=== PATIENT | male | born 1945 | race Caucasian/White ===

== ENCOUNTER 2019-02-09 17:34 | Inpatient (IN) | payer MEDICARE ==
--- OUTSIDE RECORDS SUMMARY | 2019-02-09 18:27 | XMS REPORT | Continuity of Care Document ---
:1945 External Reference #:[id number] Author Name Gisela Bhagat Care Team Providers Name Role Phone Nasrin Patel MD Primary Care Physician Unavailable Payers Date Identification Numbers Payment Provider Subscriber Effective: 2018 Policy Number: [id number] Medicare Blue Ppo Paolo Fragoso PayID: [id number] [address] [address] [place] [address] Effective: 2012 Policy Number: [id number] Facets Paolo Fragoso Expires: 2018 PayID: [id number] [address] [address] [place] [address] Effective: 2010 Policy Number: [id number] [facility] Ppo Paolo Fragoso Expires: 2012 PayID: [id number] [address] [address] [place] [address] Family History Date Family Member(s) Observation Comments General Heart Disease General Cancer Social History Type Date Description Comments Sex Unknown Lives With Occupation Not Currently Working ETOH Use Denies alcohol use Tobacco Use Start: Unknown Patient has never smoked Smoking Status Reviewed: 02/08/19 Patient has never smoked Exercise Type/Frequency Exercises sporadically Allergies, Adverse Reactions, Alerts Description No Known Drug Allergies Medications Active Medications SIG Qnty Indications Ordering Provider Date Doxazosin Mesylate Unknown Diovan Unknown Simvastatin Unknown Acetaminophen 2 every 4 hours Unknown 325mg Tablets as needed for pain History Medications Percocet 1-2 tabs po q4-6 20tabs Jorge A Schafer M.D. 06/15/2011 - 5-325mg prn pain 12/08/2014 Tablets Medications Administered in Office Medication SIG Qnty Indications Ordering Provider Date Depomedrol 40MG Mack Bhatti M.D. 12/09/2014 Injection Depomedrol 40MG Mack Bhatti M.D. 01/28/2014 Injection Depomedrol 80MG Mack Bhatti M.D. 02/03/2012 Injection Depomedrol 20MG Mack Bhatti M.D. 02/03/2012 Injection Vital Signs Date Vital Result Comment 02/08/2019 1:30pm Height 68 inches 5'8" Weight 170.00 lb BP Systolic 130 mmHg BP Diastolic 72 mmHg Respiratory Rate 20 /min Body Temperature 98.8 F Pain Level 8 BMI (Body Mass Index) 25.8 kg/m2 12/09/2014 11:43am Height 68 inches 5'8" Weight 170.00 lb Pain Level 2 BMI (Body Mass Index) 25.8 kg/m2 01/28/2014 9:32am Height 68 inches 5'8" Weight 170.00 lb Heart Rate 64 /min BP Systolic 124 mmHg BP Diastolic 80 mmHg BMI (Body Mass Index) 25.8 kg/m2 Procedures Date Code Description Status 02/08/201946161 Inject/Drain Joint/Bursa Major W/O US Completed 12/09/2014 49143 Inject Tendon Sheath Or Ligament Aponeurosis Eg Plantar Completed Fascia 01/28/2014 19684 Rad Exam; Wrist, Comp, Min 3 Views Completed 01/28/2014 75190 Inject Tendon Sheath Or Ligament Aponeurosis Eg Plantar Completed Fascia 02/03/2012 31155 Rad Shoulder Comp, Min. 2 Views Completed 02/03/2012 52193 Inject/Drain Joint/Bursa Major W/O US Completed 02/03/2012 93171 Injection Single Tendon Origin/Insertion Completed 02/03/2012 21856 Inject Tendon Sheath Or Ligament Aponeurosis Eg Plantar Completed Fascia Encounters Type Date Location Provider Dx Diagnosis Office Visit 12/09/2014 [facility] Mack Bhatti M.D. 727.03 Trigger Finger 11:45a Of [place] Acquired 727.09 Synovitis & Tenosynovitis Other Office Visit 01/28/2014 9:15a Orth[facility] Mack Bhatti 727.03 Trigger Finger [facility] [place] Acquired 727.09 Synovitis & Tenosynovitis Other 727.05 Tenosynovitis Hand & Wrist Other Office Visit 02/03/2012 9:45a Orthopedic Mack Bhatti, 726.10 B[facility]ae [facility] M.Yang. 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 Cartilage Or Meniscus Jennifer Plan of Treatment Future Appointment(s):03/15/2019 1:45 pm - Buddy Sweeney MD at [facility]02/08/2019 - Buddy Sweeney, MDM25.562 Pain in left kneeS83.282A Other tear of lateral meniscus, current injury, left knee, iNew Therapy:Physical TherapyFollow up:Follow up: 4-6 weeks
--- NOTE | 2019-02-09 18:34 | ED ---
Shortness of Breath - HPI Summary HPI Summary: A 74 y/o male presents to [facility] with a chief complaint of SOB and SOB with exertion on 02/09/19. He reports that he had a cortisone shot in his left knee yesterday at 14:[address] Sweeney. Vital signs were typical then. But now he reports that his BP is elevated. He also notes that his voice is hoarse. The patient also reports that his pulse was elevated from around 60bpm up to 85bpm today. He has a Hx of asthma, and uses an inhaler as needed, using the inhaler today. He denies any CP. He has had a similar type of SOB with asthma previously. He was not wheezing. He denies any urinary symptoms. He denies any Hx of cardiac disease. He has not had a stress test. Pt's knee is not hurting today, and it has no redness or swelling. FHx of cancer, in father, leukemia in mother. He denies a Hx of blood clots. He had toe surgery 5-6 years ago and shoulder surgery in his 20s. His PCP, Dr. Patel, instructed him to present to the ED with these sxs. Vital signs at triage: HR 90 bpm, BP 157/74, O2 Sat 100% - History of Current Complaint Chief Complaint: EDShortnessOfBreath Time Seen by Provider: 02/09/19 17:46 Hx Obtained From: Patient, Family/Appliance Painter And Refinisher - Pt's son Gautam is a first year president college or university Onset/Duration: Sudden Onset, Lasting Hours, Still Present Timing: Constant Current Severity: None Dyspnea At: Exertion Aggravating Factors: Nothing Alleviating Factors: Nothing Associated Signs & Symptoms: Negative - wheezing, fever - Allergy/Home Medications Allergies/Adverse Reactions: Allergies Allergy/AdvReac Type Severity Reaction Status Date / Time No Known Allergies Allergy Verified 02/09/19 21:58 Home Medications: Home Medications Valsartan 80 mg PO DAILY 02/09/19 [History Confirmed 02/09/19] PMH/Surg Hx/FS Hx/Imm Hx Previously Healthy: No Endocrine/Hematology History: Denies: Hx Diabetes, Hx Thyroid Disease Cardiovascular History: Reports: Hx Hypercholesterolemia, Hx Hypertension - on meds Respiratory History: Reports: Hx Asthma Denies: Hx Chronic Obstructive Pulmonary Disease (COPD) GI History: Denies: Hx Ulcer - Surgical History Surgical History: Yes Surgery Procedure, Year, and Place: He had toe surgery 5-6 years ago and shoulder surgery in his 20s Infectious Disease History: No Infectious Disease History: Denies: Hx Hepatitis, Hx Human Immunodeficiency Virus (HIV), Traveled Outside the [place] in Last 30 Days - Family History Known Family History: Positive: Hypertension - father, Other - leukemia in mother - Social History Alcohol Use: Rare Substance Use Type: Reports: None Smoking Status (MU): Never Smoked Tobacco Review of Systems Negative: Fever Negative: Chest Pain Positive: Shortness Of Breath Gastrointestinal: Negative Genitourinary: Negative Musculoskeletal: Negative Skin: Negative Neurological: Negative Psychological: Normal All Other Systems Reviewed And Are Negative: Yes Physical Exam - Summary Physical Exam Summary: Appearance: well-appearing, no pain distress, well-nourished, younger than stated age. Skin: Warm, color reflects adequate perfusion, dry Head: Normal Head/Face inspection, atraumatic Eyes: Conjunctiva clear ENT: Normal inspection Neck: Supple, no nodes, no JVD Respiratory: Lungs clear, normal breath sounds, no respiratory distress Cardio: RRR, No murmur, pulses normal, brisk capillary refill Abdomen: Soft, nontender Bowel sounds: Present Musculoskeletal: Strength Intact/ROM intact, no calf tenderness, no edema, left knee with bandaid in place, has full ROM, no swelling or effusion, no redness Psychological: Normal Neuro: Alert, muscle tone normal, no focal deficit Triage Information Reviewed: Yes Vital Signs On Initial Exam: Initial Vitals Temp Pulse Resp BP Pulse Ox 99.4 F 90 18 157/74 100 02/09/19 17:39 02/09/19 17:39 02/09/19 17:39 02/09/19 17:39 02/09/19 17:39 Vital Signs Reviewed: Yes Diagnostics - Vital Signs Vital Signs Temp Pulse Resp BP Pulse Ox 02/09/19 17:39 99.4 F 90 18 157/74 100 - Laboratory Result Diagrams: 02/09/19 19:19 02/09/19 19:19 Lab Statement: Any lab studies that have been ordered have been reviewed, and results considered in the medical decision making process. - Radiology CXR Radiology Interpretation Completed By: ED Physician Summary of Radiographic Findings: NAD. Pending official imaging report. - EKG 17:44 Cardiac Rate: NL - 84 bpm EKG Rhythm: Sinus Rhythm Summary of EKG Findings: An EKG at 17:44 reveals SR, nml AV/IV CT, nml QTc, and nml axis. minimal ST depression I and aVL and v3-v6. No acute changes. No previous EKG to compare with. ED MD has reviewed and interpreted this EKG. Re-Evaluation - Re-Evaluation First Eval Re-Evaluation Time: 19:22 Change: Improved Comment: Pt reports that his heart rate has decreased. Second Eval Re-Evaluation Time: 20:37 Change: Unchanged Comment: Patient's son in room, who is a physician. HR 63 bpm, O2 Sat 100%, BP 139/54 Course/Dx - Course Course Of Treatment: A 74 y/o male presents to [facility] with a chief complaint of SOB with exertion, hoarse voice, BP that is elevated for him, and tachycardia one day after receiving a cortisone injection in his left knee. He denies any urinary symptoms or CP. An EKG at 17:44 reveals SR 90, nml AV/IV CT, nml QTc, and nml axis. minimal ST depression in I and aVL and v3-v6. No acute changes. No previous EKG to compare with. ED MD has reviewed and interpreted this EKG. His CXR showed NAD. In the ED course the patient was given 324 mg Aspirin PO at 22:02. Blood work and chemistries obtained. WBC of 19.4 at 19:19, Lactic acid of 2.5 at 19:16, Troponin of 0.04 at 19:19. Pt has a HEART score of 6. Pt medications reviewed this visit. Nurses notes reviewed. Allergies noted. Case discussed with Dr. Simpson, hospitalist, who accepted the patient for admission. The patient is agreeable with this plan. - Diagnoses Differential Diagnosis/HQI/PQRI: Positive: Asthma, Bronchitis, CHF, CT, Pulmonary Embolism, Unstable Angina Provider Diagnoses: Dyspnea on exertion, Elevated lactic acid level, Elevated troponin, Leukocytosis - Physician Notifications Discussed Care of Patient With: Leticia Simpson Time Discussed With Above Provider: 20:00 Instructed by Provider To: Admit As Inpatient Discharge - Sign-Out/Discharge Documenting (check all that apply): Patient Departure - admit All imaging exams completed and their final reports reviewed: No Patient Received Moderate/Deep Sedation with Procedure: No - Discharge Plan Condition: Fair Disposition: ADMITTED TO [facility] - Billing Disposition and Condition Condition: FAIR Disposition: Admitted to [facility] - Attestation Statements Document Initiated by Vesna: Yes Documenting Scribe: Hector Hunt Provider For Whom Vesna is Documenting (Include Credential): Dr. Nancy Jay MD Scribe Attestation: Hector Real, scribed for Dr. Nancy Jay MD on 02/10/19 at 0252. Scribe Documentation Reviewed: Yes Provider Attestation: The documentation as recorded by the Hector wiley accurately reflects the service I personally performed and the decisions made by me, Dr. Nancy Jay MD Status of Scribe Document: Viewed
[2019-02-09 19:28] LABS: ABS Lymphocytes 0.8 10^3/ul (1.0-4.8); ABS Monocytes 0.5 10^3/ul (0-0.8); ABS Neutrophils 18.1 10^3/ul (1.5-7.7); Hematocrit 38 % (42-52); Hemoglobin 12.7 g/dL (14.0-18.0); Lymphocyte % 3.9 %; Mean Corpuscular HGB Conc 33 g/dL (31-36); Mean Corpuscular Hemoglobin 32 pg (27-31); Mean Corpuscular Volume 95 fL (80-94); Mean Platelet Volume 8.4 fL (7.4-10.4); Platelet Count 194 10^3/uL (150-450); Red Cell Distribution Width 14 % (10-15); White Blood Count 19.4 10^3/uL (3.5-10.8)
[2019-02-09 19:41] LABS: Activated Partial Thrombo Time 26.9 seconds (26.0-38.0)
[2019-02-09 19:46] LABS: ALT 13 U/L (7-52); AST 22 U/L (13-39); Albumin 4.6 g/dL (3.2-5.2); Albumin/Globulin Ratio 1.8 (1-3); Alkaline Phosphatase 49 U/L (34-104); Anion Gap 11 mmol/L (2-11); BUN/Creatinine Ratio 26.4 (8-20); Blood Urea Nitrogen 34 mg/dL (6-24); C Reactive Protein 5.47 mg/L (<8.01); CO2 Carbon Dioxide 24 mmol/L (22-32); Calcium 10.1 mg/dL (8.6-10.3); Chloride 107 mmol/L (101-111); Creatine Kinase 397 U/L (10-223); EGFR African American 66.2 (>60); EGFR Non-African American 54.7 (>60); Globulin 2.6 g/dL (2-4); Glucose 131 mg/dL (70-100); Potassium 4.6 mmol/L (3.5-5.0); Sodium 142 mmol/L (135-145); Total Protein 7.2 g/dL (6.4-8.9)
[2019-02-09 19:52] LABS: Troponin I 0.04 ng/mL (<0.04)
[2019-02-09] MEDS ORDERED: Ondansetron INJ* 2 MG/ML VIAL IV PRN (21:46)
[2019-02-09] MEDS ORDERED: NS 0.9% 1000 ML** 1,000 ML IV ONE (21:46)
[2019-02-09] MEDS ORDERED: Aspirin TAB* 325 MG PO ONE (21:56)
[2019-02-09] MEDS ORDERED: NS 0.9% 1000 ML** 1,000 ML IV SCH (22:00)
[2019-02-09] MEDS ORDERED: Aspirin 81 mg CHEW TAB* 81 MG TAB.CHEW PO ONE (22:02)
[2019-02-09 22:26] LABS: Troponin I 0.04 ng/mL (<0.04)
[2019-02-09] MEDS: Zolpidem TAB* 10 MG PO PRN (23:24)
[2019-02-09] MEDS: Heparin VIAL(*) 5000 UNITS/ML VIAL (FIVE THOUSAND) SUBCUT SCH (23:25)
--- NOTE | 2019-02-10 00:01 | HP ---
AMENDED REPORT NOW INCLUDES DESIGNATED COSIGNER CC: Dr. Nasrin Patel * HISTORY AND PHYSICAL: DATE OF ADMISSION: 02/09/19 PRIMARY CARE PROVIDER: Dr. Nasrin Patel. ATTENDING PHYSICIAN: Dr. Leticia Simpson * (dictation provided by Breanna Prater NP ). CHIEF COMPLAINT: Dyspnea on exertion. HISTORY OF PRESENT ILLNESS: Mr. Fragoso is a 74-year-old male with past medical history of asthma, hypertension, hyperlipidemia, and recent cortisone injection to his left knee on 02/08/19, who presents today to the hospital with dyspnea on exertion. Mr. Fragoso states he has been in his normal state of health. He tries to be active and does engage in pretty regular though light exercise routine. He has had some limitations due to pain in his left knee. He therefore went to have a left knee cortisone injection with Dr. Sweeney yesterday. The patient states he left the office, was feeling well other than the fact that his knee was hurting. He went to bed at 9 p.m. When he woke up this morning, he could tell that he was a bit short of breath with exertion. It felt similar to his history of asthma exacerbations. It persisted through the day as he went about his routine, working in the garden, etc. He states his knee feels "great." He continued to note his shortness of breath and was also checking his heart rate. He states his heart rate was up into the high 80s , which was unusual for him. He reviewed these findings with his son, who highly encouraged him to come to the emergency room for evaluation. He denies cough. He denies chest pain. He denies nausea, vomiting, or diarrhea. He has been eating and drinking normally. He has no pain or redness to the left knee. In the emergency room, Mr. Fragoso was examined. He was not wheezing. His labs showed white blood cell count of 19.4, hemoglobin 12.7, hematocrit 38. His D- dimer is less than 200. His BUN and creatinine are slightly elevated at 34 and 1.29. His lactic acid is 2.5. Troponin is 0.04. CRP 5.47. He had a chest x- ray that showed no acute abnormality. EKG shows concern of ST depressions in V4 , V5, V6. Repeat EKG now at 2150 shows resolution of these EKG changes. PAST MEDICAL HISTORY: 1. Asthma. 2. Hypertension. 3. Hyperlipidemia. 4. Osteoarthritis. OUTPATIENT MEDICATIONS: 1. Zolpidem nightly. 2. Simvastatin. 3. Ibuprofen. 4. Doxazosin. 5. Diovan. 6. Codeine with acetaminophen. 7. Albuterol. The patient does not know the dosages of his medications and they were not available in [facility] either. ALLERGIES: No known drug allergies. FAMILY HISTORY: The patient states his mother had stomach cancer. His father related to hairy cell leukemia. SOCIAL HISTORY: The patient is a former smoker. He quit about 25 years ago. No alcohol use. The patient states his is his healthcare proxy. REVIEW OF SYSTEMS: A 14-point review of systems was completed with Mr. Fragoso and all those not mentioned above were negative. PHYSICAL EXAMINATION GENERAL: Mr. Fragoso is lying in bed. He is in no acute distress. VITAL SIGNS: Temperature 99.4, pulse rate 90, respiratory rate 18, O2 saturation 100% on room air, blood pressure 157/74. LUNGS: Clear to auscultation bilaterally with no accessory muscle use and good aeration. HEART: S1, S2. No murmur, rub, or gallop. Regular. ABDOMEN: Soft and nontender. Bowel sounds are positive x4. EXTREMITIES: No cyanosis or edema. There is no erythema, no warmth, no pain to the left or right knee. NEUROLOGIC: He is alert and oriented x3. He moves all extremities equally. There is no facial asymmetry or focal weakness. Extraocular movements are intact. SKIN: The patient has a Band-Aid to his left knee. DIAGNOSTIC STUDIES/LAB DATA: WBC 19.4, hemoglobin 12.7, hematocrit 38, platelet count 194. INR 1. D-dimer is less than 200. Sodium 142, potassium 4.6, chloride 107, serum bicarbonate 24, BUN 34, creatinine 1.29, glucose 131, lactic acid 2.5, troponin 0.04. Chest x-ray shows no acute process. EKG read per above. ASSESSMENT AND PLAN: Mr. Fragoso is a 74-year-old male with past medical history of hypertension, hyperlipidemia, and asthma, who presents today to the hospital with sudden onset of dyspnea on exertion, found to have a mild elevation in his troponin and ST depression in V4 through V6. Our plan is as follows: 1. Dyspnea on exertion: I am concerned that the patient has mild elevation in his troponin and associated EKG changes. Though they are not diagnostic, his EKG changes are dynamic as they resolved in repeat EKG. I plan to observe him in the hospital overnight for repeat troponins with accompanying EKGs. The patient is asymptomatic and lying in the bed. Plan is to trend troponins overnight. As stated, the patient's D-dimer was normal, his chest x-ray was normal, thus ruling out at this point pneumonia and pulmonary embolism. I am not ordering a stress test or echocardiogram at this time as I would like to see the remainder of his workup before determining whether or not the patient will need to stay in the hospital until Tuesday for stress test and I will leave this to the team tomorrow to discuss with the patient and make an informed decision with him. 2. Acute kidney injury. The patient's BUN and creatinine are slightly elevated. I think this is due to dehydration as his lactic acid is also slightly elevated. We are giving him 1 L of normal saline now and will recheck his lactic acid at 1 a.m. when his next troponin is due. He is tachycardic or hypotensive. We will recheck BUN and creatinine in the a.m. and if he does not respond appropriately to IV fluids, we can continue to workup for further etiologies of kidney injury. 3. Hypertension. Patient's blood pressure is 120s to 150s here in the ED. He does take valsartan at home but he does not know the dosage. The nursing staff is working to get this information from his son, who is going home to get medications and hopefully he can bring in the medication list or the bottles himself so that we can determine the dosages of his medications. 4. Code status is full code. TIME SPENT: Approximately 60 minutes was spent on the admission of this patient , more than half the time spent with the patient at the bedside reviewing the events leading up to this hospitalization, performing the physical examination, reviewing the plan of care. BREANNA PRATER NP [id number]/[facility] #: [id number] SHEILA
[2019-02-10] MEDS: Heparin VIAL(*) 5000 UNITS/ML VIAL (FIVE THOUSAND) SUBCUT SCH ×3 (05:04→20:48)
[2019-02-10 06:47] LABS: ABS Lymphocytes 0.8 10^3/ul (1.0-4.8); ABS Monocytes 0.6 10^3/ul (0-0.8); ABS Neutrophils 13.5 10^3/ul (1.5-7.7); Hematocrit 35 % (42-52); Hemoglobin 11.8 g/dL (14.0-18.0); Lymphocyte % 5.4 %; Mean Corpuscular HGB Conc 34 g/dL (31-36); Mean Corpuscular Hemoglobin 32 pg (27-31); Mean Corpuscular Volume 93 fL (80-94); Platelet Count 180 10^3/uL (150-450); Red Blood Count 3.71 10^6 /uL (4.18-5.48); Red Cell Distribution Width 15 % (10-15); White Blood Count 14.9 10^3/uL (3.5-10.8)
[2019-02-10 07:03] LABS: BUN/Creatinine Ratio 33.6 (8-20); Calcium 8.8 mg/dL (8.6-10.3); EGFR African American 82.2 (>60); EGFR Non-African American 67.9 (>60); HDL Cholesterol 52.5 mg/dL; Potassium 4.2 mmol/L (3.5-5.0)
[2019-02-10] MEDS: Aspirin 81 mg CHEW TAB* 81 MG TAB.CHEW PO SCH (08:02)
[2019-02-10] MEDS: Losartan TAB* 25 MG PO SCH (08:46)
--- NOTE | 2019-02-10 09:52 | PN ---
Subjective Date of Service: 02/10/19 Interval History: Patient reports he feels well today. Endorses that he has had a cough since 02/08 which is continued today. Denies difficulty breathing, dyspnea on exertion, chest pain, dizziness/lightheadedness, nausea, vomiting, abd pain, fever/chills. Objective Active Medications: Acetaminophen (Tylenol Tab*) 650 mg PO Q6H PRN PRN Reason: PAIN Aspirin (Aspirin 81 Mg Chew Tab*) 81 mg PO DAILY [facility] Last Admin: 02/10/19 08:02 Dose: 81 mg Atorvastatin Calcium (Lipitor*) 40 mg PO 1700 [facility] Heparin Sodium (Porcine) (Heparin Vial(*)) 5,000 units SUBCUT Q8HR [facility] Last Admin: 02/10/19 05:04 Dose: 5,000 units Sodium Chloride (Ns 0.9% 1000 Ml) 1,000 mls @ 75 mls/hr IV PER RATE [facility] Last Admin: 02/09/19 23:49 Dose: 75 mls/hr Losartan Potassium (Cozaar Tab*) 25 mg PO DAILY [facility] Last Admin: 02/10/19 08:46 Dose: 25 mg Ondansetron HCl (Zofran Inj*) 4 mg IV Q6H PRN PRN Reason: NAUSEA Zolpidem Tartrate (Ambien Tab*) 10 mg PO BEDTIME PRN PRN Reason: INSOMNIA Last Admin: 02/09/19 23:24 Dose: 10 mg Vital Signs - 8 hr 02/10/19 02/10/19 03:39 06:44 Temperature 98.2 F 99.0 F Pulse Rate 55 58 Respiratory 16 16 Rate Blood Pressure 127/53 131/55 (mmHg) O2 Sat by Pulse 99 100 Oximetry Oxygen Devices in Use Now: None Appearance: WD/WN male, appears younger than stated age, laying upright in hospital bed, appearing in NAD Eyes: No Scleral Icterus, PERRLA Ears/Nose/Mouth/Throat: Mucous Membranes Moist Neck: NL Appearance and Movements; NL JVP Respiratory: Symmetrical Chest Expansion and Respiratory Effort, Clear to Auscultation Cardiovascular: NL Sounds; No Murmurs; No JVD, RRR Abdominal: - - abd soft, nontender, nondistended Extremities: No Edema, No Clubbing, Cyanosis Skin: No Rash or Ulcers Neurological: Alert and Oriented x 3, NL Gait, NL Muscle Strength and Tone Result Diagrams: 02/10/19 04:53 02/10/19 04:53 Assess/Plan/Problems-Billing Assessment: 74 yo white male with PMHx asthma, HTN, and HLD presents to the emergency department c/o dyspnea on exertion. - Patient Problems (1) NSTEMI (non-ST elevated myocardial infarction) Code(s): I21.4 - NON-ST ELEVATION (NSTEMI) MYOCARDIAL INFARCTION SNOMED Code(s ): 55148328 Comment: -patient experiencing dyspnea on exertion on date of admission -troponin minimally elevated to 0.04, have since stabilized -EKG with ST depressions in V3 and V4 at admission; no prior EKG for comparison -EKG taken today at midnight with resolution of the ST depressions, demonstrating that these initial ST depressions were likely acute -patient received full dose ASA in ED, continuing 81 mg ASA -patient takes simvastatin at home, continuing lipitor here; LDL control good at 58 -patient takes valsartan at home but is unsure of dose; giving low dose losartan -holding off on BB for now due to bradycardia -echo will take place tomorrow -stress test pending due to weekend until 02/12/19 -CYRUS score=3 indicating 13% risk at 14 days of: all-cause mortality, new or recurrent OH, or severe recurrent ischemia requiring urgent revascularization -patient denies symptoms today (2) Bradycardia Code(s): R00.1 - BRADYCARDIA, UNSPECIFIED SNOMED Code(s): 37898252 Comment: -patient reports he has a resting HR in 50s-60s at baseline and regularly exercises -HR has been consistently in the 50s since admission -avoiding starting at BB at this time due to bradycardia -pt had PACs followed by ~1.5 second pause, no other events on tele -continue tele (3) HTN (hypertension) Code(s): I10 - ESSENTIAL (PRIMARY) HYPERTENSION SNOMED Code(s): 39989472 Comment: -continue losartan -normotensive (4) Asthma Code(s): J45.909 - UNSPECIFIED ASTHMA, UNCOMPLICATED SNOMED Code(s): 422944655 Comment: -no acute exacerbation -ordered prn albuterol (5) Leukocytosis Code(s): D72.829 - ELEVATED WHITE BLOOD CELL COUNT, UNSPECIFIED SNOMED Code(s) : 224265684 Comment: -WBC 14.9 -patient had glucocorticoid injection to knee on 02/08/19, this is the most likely cause -afebrile (6) DVT prophylaxis Code(s): Z29.9 - ENCOUNTER FOR PROPHYLACTIC MEASURES, UNSPECIFIED SNOMED Code( s): 786547635 Comment: -subQ heparin (7) Full code status Code(s): Z78.9 - OTHER SPECIFIED HEALTH STATUS SNOMED Code(s): 170587433
[2019-02-10] MEDS ORDERED: Albuterol HFA INHALER* 8 gm MDI INH PRN (09:58)
[2019-02-10 11:20] LABS: Magnesium 2.2 mg/dL (1.9-2.7)
[2019-02-10] MEDS: Atorvastatin* 40 MG TAB PO SCH (17:05)
[2019-02-10] MEDS: Acetaminophen TAB* 325 MG PO PRN (19:59)
[2019-02-10] MEDS ORDERED: Ibuprofen TAB* 600 MG PO PRN (20:11)
[2019-02-10] MEDS: Acetaminophen / Codeine* #3 (300 MG/30 MG) TAB PO PRN (20:47)
[2019-02-10] MEDS: Zolpidem TAB* 10 MG PO PRN (22:01)
[2019-02-11] MEDS: Heparin VIAL(*) 5000 UNITS/ML VIAL (FIVE THOUSAND) SUBCUT SCH ×3 (06:18→21:29)
[2019-02-11] MEDS: Aspirin 81 mg CHEW TAB* 81 MG TAB.CHEW PO SCH (09:57)
[2019-02-11] MEDS: Losartan TAB* 25 MG PO SCH (09:57)
--- NOTE | 2019-02-11 14:43 | PN ---
Subjective Date of Service: 02/11/19 Interval History: Patient feels well. He denies chest pain, neck/jaw pain, arm pain, difficulty breathing, dyspnea on exertion, abd pain, nausea/vomiting. Objective Active Medications: Acetaminophen (Tylenol Tab*) 650 mg PO Q6H PRN PRN Reason: PAIN Acetaminophen/Codeine Phosphate (Tylenol/Codeine 30 Mg Tab*) 2 tab PO Q4H PRN PRN Reason: PAIN Last Admin: 02/10/19 20:47 Dose: 2 tab Albuterol (Ventolin Hfa Inhaler*) 1 puff INH Q4H PRN PRN Reason: SOB/WHEEZING Aspirin (Aspirin 81 Mg Chew Tab*) 81 mg PO DAILY [facility] Last Admin: 02/11/19 09:57 Dose: 81 mg Atorvastatin Calcium (Lipitor*) 40 mg PO 1700 [facility] Last Admin: 02/10/19 17:05 Dose: 40 mg Heparin Sodium (Porcine) (Heparin Vial(*)) 5,000 units SUBCUT Q8HR [facility] Last Admin: 02/11/19 06:18 Dose: 5,000 units Ibuprofen (Motrin Tab*) 600 mg PO Q6H PRN PRN Reason: PAIN Stop: 02/11/19 21:00 Losartan Potassium (Cozaar Tab*) 25 mg PO DAILY [facility] Last Admin: 02/11/19 09:57 Dose: 25 mg Ondansetron HCl (Zofran Inj*) 4 mg IV Q6H PRN PRN Reason: NAUSEA Zolpidem Tartrate (Ambien Tab*) 10 mg PO BEDTIME PRN PRN Reason: INSOMNIA Last Admin: 02/10/19 22:01 Dose: 10 mg Vital Signs - 8 hr 02/11/19 07:14 Temperature 98 F Pulse Rate 64 Respiratory 20 Rate Blood Pressure 118/44 (mmHg) O2 Sat by Pulse 99 Oximetry Oxygen Devices in Use Now: None Appearance: WD/WN elderly white male who appears younger than stated age laying upright in hospital bed, appearing in NAD Eyes: No Scleral Icterus, PERRLA Ears/Nose/Mouth/Throat: Mucous Membranes Moist Neck: NL Appearance and Movements; NL JVP Respiratory: Symmetrical Chest Expansion and Respiratory Effort, Clear to Auscultation Cardiovascular: NL Sounds; No Murmurs; No JVD, RRR Abdominal: - - abdomen soft, nontender, nondistended Extremities: No Edema, No Clubbing, Cyanosis Skin: No Rash or Ulcers Neurological: Alert and Oriented x 3, NL Muscle Strength and Tone Result Diagrams: 02/10/19 04:53 02/10/19 04:53 Assess/Plan/Problems-Billing Assessment: 74 yo white male with PMHx asthma, HTN, and HLD presents to the emergency department c/o dyspnea on exertion. - Patient Problems (1) NSTEMI (non-ST elevated myocardial infarction) Code(s): I21.4 - NON-ST ELEVATION (NSTEMI) MYOCARDIAL INFARCTION SNOMED Code(s ): 93405814 Comment: -patient experiencing dyspnea on exertion on date of admission -troponin minimally elevated to 0.04, have since stabilized at 0.03 -EKG with ST depressions in V3 and V4 at admission; no prior EKG for comparison -EKG taken today at midnight with resolution of the ST depressions, demonstrating that these initial ST depressions were likely acute -patient received full dose ASA in ED, continuing 81 mg ASA -patient takes simvastatin at home, continuing lipitor here; LDL control good at 58 -patient takes valsartan at home but is unsure of dose; giving low dose losartan -holding off on BB for now due to bradycardia -echo and stress test pending due to weekend until 02/12/19 -patient remains asymptomatic (2) Bradycardia Code(s): R00.1 - BRADYCARDIA, UNSPECIFIED SNOMED Code(s): 96439499 Comment: -patient reports he has a resting HR in 50s-60s at baseline and regularly exercises -HR 45-71 on tele in last 24 hours -avoiding starting at BB at this time due to bradycardia and would be held in AM for stress testing regardless -pt had 3 second pause overnight which was preceded by PACs -continue tele (3) PAIGE (acute kidney injury) Code(s): N17.9 - ACUTE KIDNEY FAILURE, UNSPECIFIED SNOMED Code(s): 54853788 Comment: -PAIGE at admission, now resolved -Cr 1.29->1.07 (4) HTN (hypertension) Code(s): I10 - ESSENTIAL (PRIMARY) HYPERTENSION SNOMED Code(s): 83836547 Comment: -continue losartan -normotensive (5) Asthma Code(s): J45.909 - UNSPECIFIED ASTHMA, UNCOMPLICATED SNOMED Code(s): 097599109 Comment: -no acute exacerbation -continue prn albuterol (6) Leukocytosis Code(s): D72.829 - ELEVATED WHITE BLOOD CELL COUNT, UNSPECIFIED SNOMED Code(s) : 450122518 Comment: -patient had glucocorticoid injection to knee on 02/08/19, this is the most likely cause -afebrile (7) DVT prophylaxis Code(s): Z29.9 - ENCOUNTER FOR PROPHYLACTIC MEASURES, UNSPECIFIED SNOMED Code( s): 741487347 Comment: -subQ heparin (8) Full code status Code(s): Z78.9 - OTHER SPECIFIED HEALTH STATUS SNOMED Code(s): 085594183
[2019-02-11] MEDS: Atorvastatin* 40 MG TAB PO SCH (16:06)
[2019-02-11] MEDS: Zolpidem TAB* 10 MG PO PRN (21:23)
[2019-02-11] MEDS: Acetaminophen TAB* 325 MG PO PRN (21:23)
[2019-02-11] MEDS: Acetaminophen / Codeine* #3 (300 MG/30 MG) TAB PO PRN (21:27)
[2019-02-12] MEDS: Heparin VIAL(*) 5000 UNITS/ML VIAL (FIVE THOUSAND) SUBCUT SCH ×2 (05:59→13:02)
[2019-02-12] MEDS: Losartan TAB* 25 MG PO SCH (08:11)
[2019-02-12] MEDS: Aspirin 81 mg CHEW TAB* 81 MG TAB.CHEW PO SCH (08:11)
[2019-02-12] MEDS: Acetaminophen / Codeine* #3 (300 MG/30 MG) TAB PO PRN (15:39)
[2019-02-12 15:53] VITALS: BP 162/43
--- NOTE | 2019-02-12 16:23 | ECHO ---
*[facility]* [place] [address] Fax #: [phone] Transthoracic Echocardiogram Patient: Fouzia Height: 68 in / Paolo 172.7 cm : 1945 Weight: 171.6 lb / Study Date: 02/12/2019 78 kg Age: 74 BP: 150 / 65 Gender: M BMI/BSA: 26.2 kg/m^2 HR: 56 bpm / 1.92 m^2 *Net C Developer: * Chastity Johnson RDCS RN *Referring Physician: * O'Shauna Lozada *Reading Physician: * Emanuel Olivares MD Indications: SOB. History: Asthma. Risk factors: Hypertension. Dyslipidemia. Conclusions Summary: 1. Left ventricle: The cavity size is normal. Wall thickness is moderately increased. Systolic function is normal. The estimated ejection fraction is 60-65%. Wall motion is normal; there are no regional wall motion abnormalities. 2. Right ventricle: Systolic function is normal. 3. Mitral valve: There is mild regurgitation. 4. Aortic valve: The findings are consistent with mild stenosis. There is trace regurgitation. The peak systolic velocity is 1.96 m/sec. The mean systolic gradient is 9.0 mm Hg. The peak systolic gradient is 15.4 mm Hg. The valve area by the velocity-time integral method is 1.74 cm^2. The valve area by the peak velocity method is 1.76 cm^2. 5. Tricuspid valve: There is mild regurgitation. 6. Pulmonary arteries: Systolic pressure is mildly to moderately increased, estimated to be 44 mm Hg. 7. Study data: No prior study is available for comparison. Study data: Transthoracic echocardiogram. Procedure: Transthoracic echocardiography was performed. Image quality was fair. Complete 2D, spectral Doppler, and color flow Doppler. Patient status: Inpatient. Patient room number: 432. No prior study is available for comparison. Rhythm: Bradycardia. Findings Left ventricle: The cavity size is normal. Wall thickness is moderately increased. Systolic function is normal. The estimated ejection fraction is 60-65%. Wall motion is normal; there are no regional wall motion abnormalities. Doppler parameters are consistent with abnormal left ventricular relaxation (grade 1 diastolic dysfunction). Right ventricle: The cavity size is normal. Systolic function is normal. The estimated peak pressure is 44 mm Hg. Left atrium: The atrium is mildly dilated. Right atrium: The atrium is mildly dilated. Mitral valve: The leaflets are mildly thickened. There is no evidence of stenosis. There is mild regurgitation. Aortic valve: The valve is trileaflet. The leaflets are mildly thickened. The findings are consistent with mild stenosis. There is trace regurgitation. Tricuspid valve: The valve is structurally normal. There is no evidence of stenosis. There is mild regurgitation. Pulmonic valve: Not well visualized. There is no evidence of stenosis. There is trace to mild regurgitation. Aorta: Aortic root: The aortic root is not dilated. Ascending aorta: The ascending aorta is not dilated. Aortic arch: The aortic arch is not dilated. Pericardium: There is no pericardial effusion. Pulmonary arteries: Not well visualized. Systolic pressure is mildly to moderately increased, estimated to be 44 mm Hg. Systemic veins: Inferior vena cava: The vessel is normal in size. The respirophasic diameter changes are in the normal range (>= 50%). Measurements Left ventricle Value Ref Aortic valve Value Ref CUCA, LAX 4.5 cm 4.2 - 5.8 Deisy diam, ED 1.8 cm ----- ESD, LAX (L) 2.1 cm 2.5 - 4.0 Peak v, S 1.96 m/sec ----- FS, LAX (H) 53 % 25 - 43 VTI, S 42.2 cm ----- PW, ED, LAX (H) 1.5 cm 0.6 - 1.0 Mean grad, S 9.0 mm Hg ----- IVS/PW, ED 0.97 Peak grad, S 15.4 mm Hg ----- E', lat deisy, TDI (L) 9.5 cm/sec >=10.0 LVOT/AV, VTI ratio 0.55 --- -- E/e', lat deisy, 10 BRITTNEY, VTI 1.74 cm^2 ----- TDI BRITTNEY, Vmax 1.76 cm^2 ----- E', med deisy, TDI 8.3 cm/sec >=7.0 E/e', med deisy, 11 Mitral valve Value Ref TDI Peak E 0.95 m/sec ----- E', avg, TDI 8.9 cm/sec Peak A 0.68 m/sec ----- E/e', avg, TDI 11 <=14 Decel time 176 ms --- -- Peak grad, D 3.6 mm Hg ----- LVOT Value Ref Peak E/A ratio 1.4 ----- Diam, S 2.00 cm Area 3.1 cm^2 Pulmonic valve Value Ref Peak delmy, S 1.1 m/sec Peak v, S 0.87 m/sec ----- VTI, S 23.4 cm Peak grad, S 3.0 mm Hg ----- Mean grad, S 3 mm Hg SV 73 ml Tricuspid valve Value Ref SV/bsa 38 ml/m^2 TR peak v (H) 3.2 m/sec <=2.8 Peak RV-RA grad, S 41 mm Hg ----- Ventricular septum Value Ref IVS, ED (H) 1.5 cm 0.6 - 1.0 Aortic root Value Ref Root diam 3.1 cm <4.1 Right ventricle Value Ref CUCA, LAX 2.9 cm Ascending aorta Value Ref CUCA minor ax, A4C 3.2 cm 1.9 - 3.5 AAo AP diam, S 3.5 cm ----- mid Pressure, S 44 mm Hg Aortic arch Value Ref Arch diam 2.3 cm ----- Left atrium Value Ref AP dim, ES 3.90 cm 3.00 - Decending aorta Value Ref 4.00 Olu peak delmy 0.61 m/sec ----- ML dim, A4C 5.1 cm SI dim, A4C 5.3 cm Pulmonary artery Value Ref Vol/bsa, ES, 1-p 37 ml/m^2 12 - 37 Pressure, S 41.0 mm Hg ----- A4C Vol/bsa, ES, A/L (H) 38 ml/m^2 16 - 34 Inferior vena cava Value Ref Diam 1.9 cm ----- Right atrium Value Ref ML dim, ES, A4C 3.5 cm 2.6 - 4.4 SI dim, ES, A4C (H) 5.7 cm 3.4 - 5.3 Estimated RAP 3 mm Hg Legend: (L) and (H) jesus values outside specified reference range. Prepared and electronically signed by Emanuel Olivares MD 02/12/2019 16:23
[2019-02-12] MEDS ORDERED: Doxazosin TAB* 2 MG PO ONE (16:45)
[2019-02-12] MEDS: Atorvastatin* 40 MG TAB PO SCH (17:09)
--- NOTE | 2019-02-13 01:08 | DS ---
CC: Dr. Nasrin Patel * DISCHARGE SUMMARY: DATE OF ADMISSION: 02/09/19 DATE OF DISCHARGE: 02/12/19 ATTENDING PHYSICIAN WHILE IN THE HOSPITAL: Dr. Cornelia Sandhu * (dictated by EVELIA Cowart). PRIMARY CARE PROVIDER: Dr. Nasrin Patel. PRIMARY DIAGNOSES: 1. Non-ST elevation myocardial infarction. 2. Bradycardia. SECONDARY DIAGNOSES: 1. Asthma. 2. Hypertension. 3. Hyperlipidemia. 4. Osteoarthritis. STUDIES WHILE IN THE HOSPITAL: Echocardiogram on 02/12/19 with ejection fraction of 60% to 65%, systolic function is normal, wall motion is normal. There are no regional wall motion abnormalities. Doppler parameters are consistent with abnormal left ventricular relaxation (grade I diastolic dysfunction). The left atrium is mildly dilated. The right atrium is mildly dilated. There is mild regurgitation of the mitral valve. There is mild stenosis of the aortic valve and trace regurgitation of the aortic valve. Please see full report for further details. Nuclear medicine scan on 02/12/19: There was no evidence of fixed or reversible perfusion defect identified. TID 1.17, which is borderline abnormal and clinical correlation is suggested. Assessment: Low risk. PERTINENT LAB DATA: Troponin at the time of admission was 0.04 and then 0.03. BNP of 178. Lactic acid of 2.5 and 1.8. Creatinine of 1.29. Then, on 02/10/19 , creatinine was 1.07. White blood cell count of 19.4 at admission. HISTORY OF PRESENT ILLNESS/HOSPITAL COURSE: Paolo Fragoso is a 74-year-old white male with past medical history of hypertension, hyperlipidemia, and asthma , who presented to the emergency department on 02/09/19 with complaint of dyspnea on exertion that was occurring for nearly a full day. Please see history and physical dictated by Breanna Prater NP, on the day of admission, for further details. He was found to have an elevated troponin to 0.04, which is positive, and his EKG demonstrated ST depression in the septal leads, which, several hours later, was shown to be resolved. Because he was found to have an NSTEMI, he was hospitalized over the weekend to receive stress test and echocardiogram on 02/12/19. Stress test per the night custodian was negative but did elicit hypertension. The radiologist noted a transient ischemic dilation of 1.17. This was discussed with night custodian Dr. Emanuel Olivares, who stated that this was a TID to the upper limits of normal and he did not believe there was further workup needed. He recommended medical management and followup with Cardiology if symptomatology continued. His echocardiogram was found to have a grade I diastolic dysfunction and some mild dilation of bilateral atria, but otherwise no wall motion abnormality. During his hospital stay, the patient was bradycardic for almost the entirety of his hospital stay in the mid 60s to low 50s and sometimes in the mid 40s while asleep without beta blockade or his home doxazosin. There were at times some PACs followed by sinus pauses of less than 3 seconds, but otherwise no other changes on telemetry. Additionally, the patient had an PAIGE, which resolved by the second day of his hospital stay with hydration. Throughout his hospital stay and on the day of discharge, the patient was asymptomatic. On the day of discharge, there was no shortness of breath or dyspnea on exertion. No chest pain. No neck or jaw pain or arm pain. No abdominal pain. No fever or chills. Of note, the patient had leukocytosis during his hospital stay, but he did have a glucocorticoid injection to his knee on 02/08/19, which is the most likely cause, and he was afebrile. PHYSICAL EXAMINATION: A thin, elderly white male, who appears younger than stated age, sitting on the hospital bed, appearing in no acute distress, son at bedside. Head: Normocephalic, atraumatic. Eyes: PERRL. Sclerae anicteric. ENT: Mucous membranes moist. Lungs: Clear to auscultation throughout. Cardio : Regular rate and rhythm without murmurs, rubs or gallops. Abdomen: Abdomen is soft, nontender, and nondistended. Extremities: No clubbing, cyanosis or edema. Neuro: No focal deficits. The patient is alert and oriented x3. Strength is 5/5 all extremities. DISCHARGE PLAN: Diet: Heart-healthy diet is recommended. Activity: Return to normal activity as tolerated. The patient was advised to follow up with his primary care provider within 7 to 10 days regarding this hospitalization. He was advised to take baby aspirin daily and to continue his home medications of valsartan and simvastatin because the patient has an LDL of 58. This represents good control of his cholesterol and his current simvastatin dose is appropriate. The patient was advised to use caution in using NSAIDs while taking baby aspirin daily. At the time of followup with primary care provider, it is recommended that the use of doxazosin for control of the patient's hypertension be reconsidered given that the patient was not on doxazosin for the entirety of his hospital stay, but was significantly bradycardic during the entirety of his hospital stay. For this reason, a beta joie was not prescribed. Additionally, it was recommended that if the patient had recurrence of dyspnea on exertion, he is to follow up with night custodian. He was recommended to return to the emergency department for new or worsening symptoms including chest pain, neck or jaw pain or arm pain radiating or loss of consciousness. DISCHARGE MEDICATIONS: 1. Aspirin 81 mg p.o. daily. Continued Home Medications: 1. Simvastatin 40 mg p.o. daily. 2. Valsartan 80 mg p.o. daily. 3. Ambien 10 mg p.o. at bedtime. 4. Doxazosin 4 mg p.o. daily. 5. Acetaminophen/codeine 300/60 mg p.o., p.r.n. pain. 6. Albuterol sulfate inhaler, 1 puff inhaled q.4 hours, p.r.n. shortness of breath or wheezing. CONDITION ON DISCHARGE: Stable. DISPOSITION: Home. TIME SPENT: Approximately 45 minutes were spent on this discharge, approximately half of this time was spent at bedside. EVELIA COWART [id number]/[facility] #: [id number] [facility]ERYang
== END 2019-02-12 17:22 | disposition home or self-care (01) | DRG 281 ==
LOC: ED 17:34 → MEDTELE 21:31 → OBSVTOIN 02-11 07:55
PROVIDERS: ADMIT Hospitalist; ATTEND Internal Medicine
DX: I21.4 Non-ST elevation (NSTEMI) myocardial infarction (principal); N17.9 Acute kidney failure, unspecified; J45.909 Unspecified asthma, uncomplicated; I10 Essential (primary) hypertension; E78.5 Hyperlipidemia, unspecified; M19.90 Unspecified osteoarthritis, unspecified site; D72.829 Elevated white blood cell count, unspecified; Z79.1 Long term (current) use of non-steroidal anti-inflammatories (NSAID); Z79.51 Long term (current) use of inhaled steroids; Z79.899 Other long term (current) drug therapy; Z80.0 Family history of malignant neoplasm of digestive organs; Z80.6 Family history of leukemia; Z87.891 Personal history of nicotine dependence
CPT/HCPCS: 36415; 71046; 78452; 80048; 80053; 80061; 82550; 82553; 83605; 83735; 83880; 84484; 85025; 85379; 85610; 85730; 86140; 93005; 93017; 93306; 99283; A9270-GY; A9502; G0378; J1644